=== PATIENT | female | born 1960 | race Caucasian/White ===

== ENCOUNTER → 2023-02-05 11:59 | Outpatient (BNVA) | payer OTHER, SELFPAY | PROVIDERS: Visit Provider Student in an Organized Health Care Education/Training Program | DX: M65.311 Trigger thumb, right thumb | CPT/HCPCS: 73130 ==

== ENCOUNTER 2023-02-25 09:08 | Day surgery (SDC) | payer OTHER, SELFPAY ==
[2023-02-22 12:32] VITALS: BMI 32.2
[2023-02-25 09:22] VITALS: BP 130/88; PULSE 85; RESP 16; TEMP 36.3; O2SAT 92
[2023-02-25] MEDS: ketorolac 30 mg/mL INJ IVP (09:43)
[2023-02-25] MEDS: acetaminophen 1,000 MG/100 ML PIGGYBACK 400 MG IV (09:45)
[2023-02-25] MEDS: sodium chloride 0.9% 1,000 ML 30 ML IV (09:45)
--- NOTE | 2023-02-25 09:45 | W.PM.OPSUD ---
Surgery/Procedure H&P Update DATE OF PROCEDURE: February 25, 2023 DATE H&P PERFORMED: 02/05/23 CHANGES TO PREVIOUS DOCUMENTATION: None. No change in HPI from office visit. Patient continues to have right thumb trigger elects proceed with surgical intervention of right thumb trigger release. All questions answered understands the ins and outs of procedure risk benefits complication alternatives with surgery elects proceed. PREOP DIAGNOSIS: RIght thumb trigger PRIMARY INDICATION FOR PROCEDURE: Right thumb trigger PLANNED PROCEDURE: Operation Date: 02/25/23 11:05 Proposed Procedures p Right trigger thumb trigger finger release 18798,M65.311 , M79.643(Right) - Joseph Gross DO
--- NOTE | 2023-02-25 10:09 | ANES.PREANE2 ---
Pre-Anesthetic Assessment Height/Weight: Height 1.52 m Weight 74.843 kg Temp Pulse Resp BP Pulse Ox O2 Del Method 97.4 F L 85 16 130/88 92 Room Air 02/25/23 09:22 02/25/23 09:22 02/25/23 09:22 02/25/23 09:22 02/25/23 09:22 02/25/23 09:22 Preop Diagnosis: RIght thumb trigger Operation Date: 02/25/23 11:05 Proposed Procedures p Right trigger thumb trigger finger release 39081,M65.311 , M79.643(Right) - Joseph Gross DO Familial anesthetic complications: none Was Beta Sim taken within 24 hours: Yes Was Clonidine taken within 24 hours: N/A Last intake: Intake Last Liquid Date 02/24/23 Last Liquid Time 23:30 Last Solid Date 02/24/23 Last Solid Time 19:00 Last Intake: 23:30 Social Tobacco and No alcohol 1ppd pack(s) per day 35+ pack years Exam alert, oriented x 3, clear to auscultation bilaterally and regular rate & rhythm Airway Submandibular: within normal limits Cervical ROM: within normal limits Mallampati: Class II Dentition: full Pulmonary Chronic Obstructive Pulmonary Disease CV/HEM Hypertension Positive trop last year with heart cath. Small diffuse dx. yet no interention. Once HTN under control CP resolved. No CP/SOB since. None reported Hepatic None reported GI Gastroesophageal Reflux Disease (OTC meds food related) Metabolic None reported Musc/skel None reported Neuropsych None reported Anesthetic Plan ASA status: 3 Anesthesia: MAC Risk of > 500 ml blood loss (7ml/kg in children): No Medications/Allergies Home Medications Medication Instructions Recorded Confirmed Last Taken Type amlodipine 5 mg tablet 5 mg PO DAILY 02/05/23 02/25/23 02/25/23 History aspirin 81 mg tablet,delayed 81 mg PO DAILY 02/05/23 02/22/23 02/17/23 History release (Adult Aspirin Regimen) atorvastatin 40 mg tablet 40 mg PO DAILY 02/05/23 02/25/23 02/24/23 History isosorbide mononitrate 60 mg 60 mg PO DAILY 02/05/23 02/25/23 02/25/23 History tablet,extended release 24 hr metoprolol tartrate 25 mg tablet 12.5 mg PO BID 08/07/3002/25/23 02/24/23 History nitroglycerin 0.4 mg sublingual 0.4 mg sublingual Q5M PRN Chest 02/05/23 02/22/23 02/22/23 History tablet Pain ondansetron 4 mg disintegrating 4 mg PO Q8H PRN nausea and 02/25/23 Unknown Rx tablet vomiting 3 days #9 tabs tramadol 50 mg tablet 50 mg PO Q6H PRN pain #20 tabs 02/25/23 Unknown Rx Allergies Allergy/AdvReac Type Severity Reaction Status Date / Time No Known Allergies Allergy Verified 02/22/23 12:31 Current Medications Generic Name Dose Route Start Last Admin Trade Name Freq PRN Reason Stop Dose Admin Sodium Chloride 1,000 mls @ 30 mls/hr 02/25/23 09:15 02/25/23 09:45 Sodium Chloride 0.9% IV 02/26/23 09:14 30 mls/hr .Q24H ANGELA Administration Data Anesthesia Cardiac Studies: No Data to Display
[2023-02-25] MEDS: ceFAZolin 2,000 MG in sodium chloride 0.9% (plus) 50 ML 100 MG IV (10:13)
[2023-02-25] MEDS: BUPivacaine 0.5% INJ 10 mL INJECTION (10:30)
--- NOTE | 2023-02-25 10:48 | P.OP_ITS ---
Operative Report Date of procedure: February 25, 2023 Pre-op diagnosis: Preop Diagnosis RIght thumb trigger Bulb Sorter: Usama Gross PA-C Assistants was necessary for the execution of this case for assistance with protection of neurovascular structures as well as assistance with wound closure. Procedure: Post-op diagnosis: Right?thumb?trigger Procedure done: Right?thumb?trigger release Surgeon: Joseph Gross DO Estimated blood loss: 1 mL Tourniquet time: 7 minutes Anesthesia: MAC local IV fluids: See anesthesia record Complications: None Findings: See operative report narrative Condition: stable Disposition: same day Brief History: Patient presents to the outpatient setting with findings consistent with a right?thumb?trigger. Patient has been worked up in the outpatient setting and is failed conservative treatment approach.? Patient has a right?thumb?trigger that she has tried treating conservatively with recurrence of her triggering pain.? We talked about treatment options and ultimately patient would like to proceed with a right?thumb?trigger release. At this point time I feel this is most appropriate as this is her next best step in treatment option.? We talked about the risk benefits complications and alternatives with surgical nonsurgical treatment options.? Understanding risk of surgery patient agrees to proceed with a right?thumb?trigger release. All questions answered. Procedure: Patient was seen evaluated in the preoperative holding area.? Consent was reviewed and signed with patient.? Correct extremity was then marked.? Patient was then seen and evaluated by the anesthesia department once cleared for surgery patient was then taken back to the operative suite patient was placed in supine position and all bony prominences well-padded the patient was properly secured to the bed.? Armboard was applied to the right upper extremity and the right upper extremity was then placed with a nonsterile tourniquet to the right upper arm.? This point time the right upper extremity was then prepped and draped in standard orthopedic fashion.? A final timeout was performed.? Patient received appropriate preoperative antibiotics. Esmarch tourniquet was used exsanguinate the right upper extremity and tourniquet was insufflated to 250 mmHg.? Right thumb, I identified patient's MP flexion crease marked appropriate incision transversely across the flexion crease within Meño's lines sharp sca lpel incision was made only through skin.? Once this was done I switched to Littler dissection scissors this I then subsequently spread longitudinally in the planes of the digital nerves.? Once these were identified these were protected by my financial sales assistant with Kasdan retractors.? Next I identified directly over the A1 jonathon of the right?thumb.? This was significantly thickened and identified to be the area of patient's?thumb?triggering.? I used sharp scalpel to incise the A1 jonathon and then utilized my financial sales assistant to retract the ability and under loupe magnification released the entirety of the A1 jonathon both proximally and distally up to the oblique jonathon.? This point time the tendon was then inspected and found to be healthy there was some inflammation around the tendon itself but no evidence of tearing and no need for any debridement.? The Ragnell was used to pull the tendon out of the incision and there was no mechanical triggering I then took the patient's?thumb?through range of motion no recurrent triggering was noted.? ?I then had anesthesia wake patient had her range the thumb with no triggering being noted. I then let the tourniquet down identified and maintained exact hemostasis with bipolar electrocautery irrigated the wound bed and then closed the incision with interrupted nylon suture. Incision sites were then dressed with Xeroform 4 x 4's Kerlix Lenard wrap and an Donnie wrap.? Patient was then awakened from anesthesia and taken to PACU in stable condition. Disposition: Patient taken to PACU in stable condition recovering well.? Dressing on in place clean dry and intact.? Patient was receive appropriate discharge instruction as well as pain medication postoperatively.? Patient may be allowed weightbearing as tolerated to the right hand and encourage range of motion once dressing come down after 72 hours.? Patient to follow-up with me in the office in 2 weeks.? Patient understands and agrees with current plan.? All questions answered.
[2023-02-25 10:57] VITALS: BP 128/83; PULSE 77; RESP 16; TEMP 36.3; O2SAT 91
--- NOTE | 2023-02-25 10:57 | PM.OP2 ---
Brief Operative Note Date of procedure: 02/25/23 Pre-op diagnosis: Right thumb trigger Post-op diagnosis: same Procedure Done: Right trigger thumb trigger finger release Surgeon: Joseph Gross Estimated blood loss (mL): 5 Complications: None Post-op Plan: Orthopedic discharge instructions: Keep dressing clean dry and intact Leave on for 72 hours after surgery, after that may remove dressings clean incision with warm soapy water, pat dry and redress with a dry dressing. No baths or soaks Weightbearing as tolerated to the operative hand Encourage hand and finger range of motion as tolerated Ice and elevate as needed for pain and swelling Take pain medication as prescribed Take antinausea medication as needed Follow-up with Dr. Gross in the office in 2 weeks Contact the office for any questions or concerns Condition: stable Disposition: PACU Coding Level of Care Code Acute Code for Mike Gaytan
--- NOTE | 2023-02-25 10:59 | PM.PACU ---
PACU note Narrative: Patient is a 62-year-old female just underwent a right trigger thumb trigger finger release. Patient transferred to PACU in stable condition. Pain is well controlled. Dressing on hand is dry and in place. Patient has good perfusion to fingers and is able to move fingers. Normal cap refill under 2 seconds. Patient has normal elbow range of motion. Unable to assess sensation due to residual localized anesthetic. Exam: awake Disposition: discharged
[2023-02-25 11:00] VITALS: BP 126/71; PULSE 74; RESP 16; O2SAT 91
[2023-02-25 11:05] VITALS: BP 147/73; PULSE 72; RESP 16; TEMP 36.3; O2SAT 92
[2023-02-25 11:12] VITALS: BP 133/97; PULSE 78; RESP 16; TEMP 36.3; O2SAT 91
[2023-02-25 11:28] VITALS: BP 154/77; PULSE 76; RESP 18; O2SAT 91
[2023-02-25] MEDS: TRAMadol 50 mg Tablet PO (11:53)
--- NOTE | 2023-02-25 17:01 | ANE.PACU2 ---
Inpatient post-anesthesia follow up: Airway intact: Yes Vital signs: Temperature 97.4 F Pulse Rate 76 Respiratory Rate 18 Blood Pressure 154/77 Pulse Oximetry 91 Oxygen Delivery Me thod Room Air Oxygen Flow Rate Fraction of Inspir ed Oxygen Hydration adequate: Yes Nausea and vomiting: No Pain level: 2 Mental status: Baseline
== END 2023-02-25 12:03 | disposition home or self-care (01) ==
PROVIDERS: Visit Provider Student in an Organized Health Care Education/Training Program
PROC: (CPT 26055; principal; 2023-02-25 11:05)
DX: M65.311 Trigger thumb, right thumb (principal); F17.210 Nicotine dependence, cigarettes, uncomplicated; J44.9 Chronic obstructive pulmonary disease, unspecified; I10 Essential (primary) hypertension; K21.9 Gastro-esophageal reflux disease without esophagitis; Z79.82 Long term (current) use of aspirin
CPT/HCPCS: 26055; J0131; J0690; J1885; J2704; J3010; J3490; J7030

== ENCOUNTER 2024-10-07 08:42 | Outpatient (CLI) | payer MEDICARE, SELFPAY ==
[2024-10-07 09:18] LABS: Basophils # 0.1 10^3/uL (0.0-0.1); Basophils % 0.8 %; Eosinophils # 0.2 10^3/uL (0.0-0.8); Eosinophils % 3.2 %; Hematocrit 44.2 % (36-47); Lymphocytes # 2.1 10^3/uL (0.8-4.8); Lymphocytes % 28.6 %; Mean Corpuscular HGB Conc 31.9 g/dL (30-55); Mean Corpuscular Hemoglobin 30.6 pg (27-33); Mean Corpuscular Volume 95.9 fl (85-98); Monocytes # 0.7 10^3/uL (0.2-0.9); Monocytes % 9.7 %; Neutrophils # 4.12 10^3/uL (1.8-7.7); Neutrophils % 57.1 %; Nucleated Red Blood Cells % 0 %; Platelet Count 227 10^3/cmm (157-399); Red Blood Count 4.61 10^6/uL (3.85-5.65); Red Cell Distribution Width 13.3 % (12.1-15.1); White Blood Count 7.21 10^3/uL (3.29-11.43)
[2024-10-07 09:48] LABS: Anion Gap 14.7 (5-19); Blood Urea Nitrogen 15 mg/dL (8-23); Calcium 9.3 mg/dL (8.5-10.5); Carbon Dioxide 26 mmol/L (22-29); Chloride 104 mmol/L (98-107); Glomerular Filtration Rate 83.7 mL/min (90-130); Glucose 96 mg/dL (65-115); Osmolality Calculated 291 mOsm/kg (285-295); Potassium 4.7 mmol/L (3.5-5.1); Sodium 140 mmol/L (136-145)
== END 2024-10-07 08:43 | disposition home or self-care (01) ==
LOC: LAB 08:47
PROVIDERS: PCP Physician Assistant; Visit Provider Nurse Practitioner Family
DX: L40.0 Psoriasis vulgaris (principal)
CPT/HCPCS: 36415; 80048; 85025; 86480

== ENCOUNTER → 2025-01-21 14:38 | Outpatient (BNVA) | payer MEDICARE, SELFPAY | PROVIDERS: PCP Physician Assistant; Visit Provider Nurse Practitioner Family | DX: L40.0 Psoriasis vulgaris (principal); Z79.899 Other long term (current) drug therapy; L40.59 Other psoriatic arthropathy; L57.8 Other skin changes due to chronic exposure to nonionizing radiation; L81.4 Other melanin hyperpigmentation | CPT/HCPCS: 99214 ==